=== PATIENT | female | born 1990 | race African-American/Black ===

== ENCOUNTER 2021-03-30 20:27 | Emergency (ER) | payer MEDICAID | END 2021-03-30 20:59 | disposition left against medical advice (07) | LOC: ER 20:27 | DX: Z53.21 Procedure and treatment not carried out due to patient leaving prior to being seen by health care provider (principal) ==

== ENCOUNTER 2025-04-04 08:11 | Emergency (ER) | payer BC, MEDICAID ==
[~2025-04-04] VITALS: Ht 162.6 cm; Wt 77.0 kg
[2025-04-04 08:12] VITALS: O2SAT 98
[2025-04-04 08:56] LABS: BASOPHILS % 0.3 % (0.0-2.0); EOSINOPHILS % 0.9 % (0.0-5.0); HEMATOCRIT. 34.5 % (36.0-48.0); HEMOGLOBIN. 10.4 g/dL (12.0-16.0); LYMPHOCYTES % 28.2 % (20.0-50.0); MEAN PLATELET VOLUME 8.7 fl (7.4-10.4); MONOCYTES % 3.2 % (2.0-8.0); NEUTROPHILS % 67.4 % (40.0-76.0); PLATELET 379 x1000/uL (130-400); RED BLOOD CELL COUNT 4.73 mill/uL (4.2-5.4); RED CELL DISTRIBUTION WIDTH 17.3 % (11.6-14.6)
[2025-04-04 09:07] LABS: HCG SCREEN NEGATIVE
[2025-04-04 09:09] LABS: CREATININE 1.0 mg/dL (0.6-1.0)
[2025-04-04 09:10] LABS: ETHANOL BLOOD < 10 mg/dL (<10); UREA NITROGEN BLOOD 12 mg/dL (9-23)
[2025-04-04] MEDS: LEVETIRACETAM 1000MG PREMIX 100 ML IV ONE (09:11)
[2025-04-04 09:53] VITALS: BP 128/80; PULSE 95; RESP 16; TEMP 36.6; O2SAT 100
== END 2025-04-04 11:00 | disposition left against medical advice (07) ==
LOC: ER 08:11
DX: R56.9 Unspecified convulsions (principal); J45.909 Unspecified asthma, uncomplicated; Z91.148 Patient's other noncompliance with medication regimen for other reason
CPT/HCPCS: 80048; 80320; 84703; 85025; 36415; 93005; 99284; J1953; Z7610 ×2; A4606; G0480